=== PATIENT | female | born 1955 | race Caucasian/White ===

== ENCOUNTER 2017-09-09 12:53 | Emergency (ER) | payer MEDICAID, OTHER ==
[~2017-09-09] VITALS: Ht 165.1 cm; Wt 82.0 kg
[2017-09-09] MEDS ORDERED: NAP5EC PO (13:10)
[2017-09-09] MEDS ORDERED: FLEXERIL (13:10)
[2017-09-09] MEDS ORDERED: IBUPROFEN 400MG TABLET PO ONE (13:30)
[2017-09-09] MEDS ORDERED: CYCLOBENZAPRINE 10MG TABLET PO ONE (13:30)
[2017-09-09] MEDS ORDERED: ACETAMINOPHEN 500MG TABLET PO ONE (13:30)
[2017-09-09 15:21] VITALS: BP 135/86
== END 2017-09-09 15:22 | disposition home or self-care (01) ==
LOC: ER 13:21
DX: M62.830 Muscle spasm of back (principal); G89.29 Other chronic pain; M54.5 Low back pain; R03.0 Elevated blood-pressure reading, without diagnosis of hypertension
CPT/HCPCS: 72100; 99284

== ENCOUNTER 2019-10-26 03:58 | Emergency (ER) | payer MEDICARE, OTHER ==
[~2019-10-26] VITALS: Ht 170.2 cm; Wt 82.0 kg
[~2019-10-26 03:58] MED LIST: FLEXERIL; NAP5EC PO
[2019-10-26 09:39] LABS: BASOPHILS % 0.6 % (0.0-2.0); EOSINOPHILS % 1.7 % (0.0-5.0); HEMATOCRIT. 39.5 % (36.0-48.0); HEMOGLOBIN. 13.6 g/dL (12.0-16.0); LYMPHOCYTES % 23.7 % (20.0-50.0); MEAN CORPUSCULAR HEMOGLOBIN 32.5 pg (28.0-32.0); MEAN CORPUSCULAR VOLUME 94.2 fL (81.0-99.0); MEAN PLATELET VOLUME 8.5 fl (7.4-10.4); MONOCYTES % 8.1 % (2.0-8.0); NEUTROPHILS % 65.9 % (40.0-76.0); PLATELET 248 x1000/uL (130-400); RED BLOOD CELL COUNT 4.19 mill/uL (4.2-5.4); RED CELL DISTRIBUTION WIDTH 13.9 % (11.6-14.6)
[2019-10-26 09:44] LABS: CHLORIDE 106 mEq/L (98-107)
[2019-10-26 12:50] VITALS: BP 107/47
== END 2019-10-26 13:10 | disposition home or self-care (01) ==
LOC: ER 03:58
DX: R42 Dizziness and giddiness (principal); E78.00 Pure hypercholesterolemia, unspecified; I10 Essential (primary) hypertension; M54.30 Sciatica, unspecified side; Z86.73 Personal history of transient ischemic attack (TIA), and cerebral infarction without residual deficits
CPT/HCPCS: 36415; 80053; 84484; 85025; 93005; 99284